=== PATIENT | male | born 1950 | race Caucasian/White ===

== ENCOUNTER 2024-01-01 00:33 | Outpatient (CLI) | payer MEDICARE, SELFPAY | END 2024-01-01 00:34 | disposition home or self-care (01) | LOC: AMB 01-11 04:21 | PROVIDERS: Visit Provider Family Medicine | DX: R41.82 Altered mental status, unspecified (principal); S09.90XS Unspecified injury of head, sequela | CPT/HCPCS: A0425; A0427 ==